=== PATIENT | female | born 1955 ===

== ENCOUNTER 2017-09-25 13:30 | Observation (INO) ==
[2017-09-25] MEDS ORDERED: MAGNESIUM SULF RIDER 4 GM in PREMIX 1 EACH IV PRN (14:59)
[2017-09-25] MEDS ORDERED: BISACODYL 5 MG TABLET PO PRN (14:59)
[2017-09-25] MEDS ORDERED: INSULIN REGULAR 100 UNIT/ML SUBCUT ONE (14:59)
[2017-09-25] MEDS ORDERED: ALUM/MAG/SIMETH/LIDO VISC 1:1 30 ML BOTTLE PO PRN (14:59)
[2017-09-25] MEDS ORDERED: MAGNESIUM HYDROXIDE SUSP 30 ML UDCUP PO PRN (14:59)
[2017-09-25] MEDS ORDERED: ONDANSETRON 4 MG/2 ML VIAL IV PRN (14:59)
[2017-09-25] MEDS ORDERED: MORPHINE 2 MG/1 ML SYRINGE IV PRN (14:59)
[2017-09-25] MEDS ORDERED: MAGNESIUM SULF RIDER 2 GM in PREMIX 1 EACH IV PRN (14:59)
[2017-09-25] MEDS ORDERED: POTASSIUM CHLORIDE 20 MEQ TABLET PO PRN ×2 (14:59)
[2017-09-25] MEDS ORDERED: ONDANSETRON 4 MG/2 ML VIAL ONE (15:37)
[2017-09-25] MEDS ORDERED: ALUM/MAG/SIMETH/LIDO VISC 1:1 30 ML BOTTLE PO STA (17:11)
[2017-09-25] MEDS: SODIUM CHLORIDE 0.45% 1,000 ML IV SCH ×2 (18:51→18:52)
[2017-09-25] MEDS: NITROGLYCERIN 2% OINT 1 INCH/GM PACK TOP SCH (20:14)
[2017-09-25] MEDS: ACETAMINOPHEN 325 MG TABLET PO PRN (20:29)
[2017-09-26] MEDS: NITROGLYCERIN 2% OINT 1 INCH/GM PACK TOP SCH ×3 (00:45→13:07)
[2017-09-26 07:33] LABS: Risk Ratio 2.98; VLDL CHOLESTEROL 19.2 MG/DL
[2017-09-26] MEDS ORDERED: DEXTROSE 50% 25 GM/50 ML VIAL IV PRN (08:35)
[2017-09-26] MEDS ORDERED: GLUCAGON 1 MG VIAL IM PRN (08:35)
[2017-09-26] MEDS ORDERED: ASPIRIN CHEW 81 MG TABLET PO SCH (09:00)
[2017-09-26] MEDS ORDERED: PANTOPRAZOLE 40 MG TABLET PO SCH (09:00)
[2017-09-26] MEDS ORDERED: FLUTICASONE 50 MCG NASAL SPRAY 16 GM BOTTLE BOTH NARES PRN (09:12)
[2017-09-26] MEDS ORDERED: LISINOPRIL 5 MG TABLET PO SCH (09:30)
[2017-09-26] MEDS: ACETAMINOPHEN 325 MG TABLET PO PRN (09:59)
[2017-09-26 12:33] VITALS: BP 136/62
[2017-09-26] MEDS: SODIUM CHLORIDE 0.45% 1,000 ML IV SCH (13:07)
[2017-09-26] MEDS ORDERED: glyBURIDE/METFORMIN 5-500 MG TABLET PO SCH (17:00)
[2017-09-26] MEDS ORDERED: PREGABALIN 50 MG CAPSULE PO SCH (21:00)
[2017-09-26] MEDS ORDERED: INSULIN GLARGINE 100 UNIT/ML SUBCUT SCH (21:00)
== END 2017-09-26 13:31 | disposition home or self-care (01) ==
LOC: EDUNIT# → N.ED 13:30 → N.EDINP 13:30 → SUATTDRO 15:03 → N.TELES 18:10
PROVIDERS: ADMIT Nurse Practitioner Family; ATTEND Internal Medicine